=== PATIENT | female | born 1990 | race Caucasian/White ===

== ENCOUNTER 2020-07-13 08:10 | Emergency (ER) | payer MEDICAID ==
[~2020-07-13] VITALS: Ht 167.6 cm; Wt 68.7 kg
[2020-07-13] MEDS ORDERED: TETanus/Pertussis (Acell)/Diphther VAC/PF (Tdap-Adult) 0.5ml syringe IMVAC ONE (09:30)
[2020-07-13] MEDS ORDERED: LIDOcaine 1% W/epiNEPHrine 1:200,000 10ml vial IJ ONE (09:30)
--- NOTE | 2020-07-13 09:58 | NUR ---
at bedside right axcillary abcess removal
[2020-07-13] MEDS ORDERED: sulfamethoxazole/trimethoprim DS (800/160mg) tablet PO ONE (10:05)
[2020-07-13] MEDS ORDERED: SULF1TAB49 PO (10:06)
[2020-07-13 12:16] VITALS: BP 113/76
== END 2020-07-13 12:25 | disposition home or self-care (01) ==
LOC: ER 08:10
DX: L02.411 Cutaneous abscess of right axilla (principal); Z88.1 Allergy status to other antibiotic agents; Z79.899 Other long term (current) drug therapy
CPT/HCPCS: 10060; 90471; 90715; 99283

== ENCOUNTER 2024-02-07 21:37 | Emergency (ER) | payer MEDICAID ==
[~2024-02-07] VITALS: Ht 170.2 cm; Wt 61.4 kg
[2024-02-07 22:02] VITALS: BP 135/89; PULSE 109; RESP 18; TEMP 97.8; O2SAT 99
[2024-02-07] MEDS ORDERED: GRIS500T7 PO (23:05)
[2024-02-07] MEDS ORDERED: CLOT30CR19 TOP (23:05)
== END 2024-02-07 23:24 | disposition home or self-care (01) ==
LOC: ER 21:38
DX: B35.4 Tinea corporis (principal)
CPT/HCPCS: 99283

== ENCOUNTER 2024-09-17 20:55 | Emergency (ER) | payer MEDICAID ==
[~2024-09-17] VITALS: Ht 167.6 cm; Wt 65.9 kg
[~2024-09-17 20:55] MED LIST: CLOT30CR19 TOP; GRIS500T7 PO
[2024-09-17 21:31] LABS: BASOPHILS % (AUTO) 0.1 % (0-1); EOSINOPHILS % (AUTO) 0.2 % (0-6); HEMATOCRIT 46.1 % (35.0-45.0); HEMOGLOBIN 15.3 g/dl (12.0-16.0); LYMPHOCYTES # (AUTO) 0.6 X10'3 (1.1-4.8); LYMPHOCYTES % (AUTO) 4.6 % (21-51); MEAN CORPUSCULAR HEMOGLOBIN 29.9 PG (27.0-31.0); MEAN CORPUSCULAR HGB CONC 33.2 g/dL (33.0-36.5); MEAN CORPUSCULAR VOLUME 89.8 FL (78-98); MEAN PLATELET VOLUME 7.8 FL (7.4-10.4); MONOCYTES # (AUTO) 0.4 X10'3 (0-0.9); MONOCYTES % (AUTO) 3.3 % (2-12); NEUTROPHILS # (AUTO) 11.7 X10'3 (1.8-7.7); NEUTROPHILS % (AUTO) 91.8 % (42-75); PLATELET COUNT 309 X10'3 (140-440); RED BLOOD COUNT 5.13 X10'6 (4.20-5.60); RED CELL DISTRIBUTION WIDTH 12.9 % (11.5-14.5); WHITE BLOOD COUNT 12.7 X10'3 (4.5-11.0)
[2024-09-17 21:46] LABS: ALANINE AMINOTRANSFERASE 15 U/L (12-78); ALBUMIN 3.7 G/DL (3.4-5.0); ALBUMIN/GLOBULIN RATIO 0.9 (1.1-1.5); ALKALINE PHOSPHATASE 87 IU/L (46-116); ANION GAP 5 (8-16); ASPARTATE AMINO TRANSFERASE 14 U/L (10-37); BILIRUBIN,TOTAL 0.8 MG/DL (0.1-1.0); BLOOD UREA NITROGEN 17 MG/DL (7-18); CALCIUM 8.3 MG/DL (8.5-10.1); CHLORIDE 103 MMOL/L (99-107); CREATININE 0.74 MG/DL (0.40-0.90); GLUCOSE 120 MG/DL (70-104); LIPASE 32 U/L (16-77); POTASSIUM 4.3 MMOL/L (3.5-5.1); SODIUM 138 MMOL/L (135-145); TOTAL CARBON DIOXIDE 29.6 MMOL/L (24-32); TOTAL PROTEIN 7.9 G/DL (6.4-8.2); eCRCL 98 ML/MIN; eGFR 89 ML/MIN
[2024-09-17 21:47] LABS: URINE HCG NEGATIVE (NEG)
[2024-09-17 21:50] LABS: BILIRUBIN,URINE NEGATIVE (Neg); CLARITY,URINE SLIGHTLY CLOUDY (Clear); COLOR,URINE YELLOW (Yellow); GLUCOSE, URINE NEGATIVE (Neg); KETONES,URINE NEGATIVE (Neg); LEUKOCYTE ESTERASE ,URINE NEGATIVE (Neg); NITRITES, URINE NEGATIVE (Neg); OCCULT BLOOD,URINE TRACE-INTACT (Neg); PROTEIN,URINE TRACE mg/dl (Neg); UROBILINOGEN,URINE 0.2 E.U/dL (0.2-1.0)
[2024-09-17 21:51] LABS: UA COLLECTION TYPE CLN CATCH MIDSTREAM
[2024-09-17 21:53] LABS: BACTERIA,URINE 1+ /HPF (Neg); MUCUS STRANDS MODERATE /LPF (Neg); RBC,URINE 0-2 /HPF (0-2); SQUAMOUS EPITHELIAL CELL,UR MANY /LPF (FEW); WBC,URINE 0-4 /HPF (0-4)
[2024-09-17] MEDS: normal saline 1000ML IV soln IVB ONE (23:13)
[2024-09-17] MEDS: ketorolac trometh 15mg/ml vial 15 MG/ML ML IV ONE (23:14)
[2024-09-17] MEDS: LORazepam 2 mg/ml vial IV ONE (23:14)
[2024-09-17] MEDS: dicyclomine 10 MG capsule PO ONE (23:14)
[2024-09-18] MEDS ORDERED: DICY10CA88 PO (01:17)
[2024-09-18] MEDS ORDERED: ONDA-243 PO (01:17)
[2024-09-18] MEDS: normal saline 1000ML IV soln IVB ONE (01:40)
[2024-09-18 02:36] VITALS: BP 105/51; PULSE 82; RESP 16; TEMP 98; O2SAT 98
== END 2024-09-18 02:42 | disposition home or self-care (01) ==
LOC: ER 20:55
DX: R11.2 Nausea with vomiting, unspecified (principal); R10.9 Unspecified abdominal pain; E86.0 Dehydration; F17.200 Nicotine dependence, unspecified, uncomplicated; Z88.1 Allergy status to other antibiotic agents
CPT/HCPCS: 36415; 80053; 81001; 81025; 83690; 85025; 96361; 96374; 96375; 99285; J1885; J2060; J7030

== ENCOUNTER 2024-12-30 23:51 | Emergency (ER) | payer MEDICAID ==
[~2024-12-30] VITALS: Ht 167.6 cm; Wt 67.3 kg
[~2024-12-30 23:51] MED LIST changes: +ONDA-243 PO
[2024-12-31 02:59] LABS: BASOPHILS % (AUTO) 0.6 % (0-1); EOSINOPHILS # (AUTO) 0.3 X10'3 (0-0.9); EOSINOPHILS % (AUTO) 4.5 % (0-6); HEMOGLOBIN 12.8 g/dl (12.0-16.0); LYMPHOCYTES # (AUTO) 2.8 X10'3 (1.1-4.8); LYMPHOCYTES % (AUTO) 41.1 % (21-51); MEAN CORPUSCULAR HEMOGLOBIN 29.4 PG (27.0-31.0); MEAN CORPUSCULAR HGB CONC 33.7 g/dL (33.0-36.5); MEAN CORPUSCULAR VOLUME 87.2 FL (78-98); MEAN PLATELET VOLUME 8.5 FL (7.4-10.4); MONOCYTES # (AUTO) 0.5 X10'3 (0-0.9); MONOCYTES % (AUTO) 7.4 % (2-12); NEUTROPHILS # (AUTO) 3.2 X10'3 (1.8-7.7); NEUTROPHILS % (AUTO) 46.4 % (42-75); PLATELET COUNT 294 X10'3 (140-440); RED BLOOD COUNT 4.36 X10'6 (4.20-5.60); RED CELL DISTRIBUTION WIDTH 12.9 % (11.5-14.5); WHITE BLOOD COUNT 6.9 X10'3 (4.5-11.0)
[2024-12-31 03:18] LABS: ALANINE AMINOTRANSFERASE 24 U/L (12-78); ALBUMIN 3.6 G/DL (3.4-5.0); ALBUMIN/GLOBULIN RATIO 1.1 (1.1-1.5); ALKALINE PHOSPHATASE 108 IU/L (46-116); ANION GAP 6 (8-16); ASPARTATE AMINO TRANSFERASE 21 U/L (10-37); BILIRUBIN,TOTAL 0.3 MG/DL (0.1-1.0); BLOOD UREA NITROGEN 20 MG/DL (7-18); CALCIUM 8.4 MG/DL (8.5-10.1); CHLORIDE 107 MMOL/L (99-107); CREATININE 0.91 MG/DL (0.40-0.90); GLUCOSE 95 MG/DL (70-104); LIPASE 38 U/L (16-77); SODIUM 142 MMOL/L (135-145); TOTAL CARBON DIOXIDE 28.8 MMOL/L (24-32); eCRCL 80 ML/MIN; eGFR 70 ML/MIN
[2024-12-31 04:02] LABS: URINE HCG NEGATIVE (NEG)
[2024-12-31 04:16] LABS: BILIRUBIN,URINE NEGATIVE (Neg); CLARITY,URINE CLEAR (Clear); COLOR,URINE YELLOW (Yellow); GLUCOSE, URINE NEGATIVE (Neg); KETONES,URINE NEGATIVE (Neg); LEUKOCYTE ESTERASE ,URINE NEGATIVE (Neg); NITRITES, URINE NEGATIVE (Neg); OCCULT BLOOD,URINE SMALL (Neg); PROTEIN,URINE NEGATIVE (Neg); UROBILINOGEN,URINE 0.2 E.U/dL (0.2-1.0)
[2024-12-31 04:18] LABS: UA COLLECTION TYPE CLN CATCH MIDSTREAM
[2024-12-31 04:23] LABS: BACTERIA,URINE 1+ /HPF (Neg); MUCUS STRANDS FEW /LPF (Neg); SQUAMOUS EPITHELIAL CELL,UR FEW /LPF (FEW)
--- NOTE | 2024-12-31 04:34 | Physician Documentation ---
History of Present Illness ~ Chief Complaint: Flank Pain Stated Complaint: FLANK PAIN Time Seen by MD: 04:26 Primary Medical Doctor: [facility] Mode of Arrival: POV, EMS HPI Patient presents to the emergency room with right lower back pain. No prior instances. Pain has resolved by the time I was able to examined the patient. She states that she was sitting and a [place] when she had terrible pain initially went away and then returned therefore she came in to be evaluated. Patient reports no problems urinating or defecating. Pain sharp in nature. She reports regular bowel movements Medication Reconciliation Allergies: Coded Allergies: cephalexin (Unverified Allergy, Unknown, 09/17/24) Scheduled Clotrimazole (Clotrimazole), 1 APPLIC TOP Q12H Griseofulvin, Microsize (Griseofulvin), 1 TAB PO DAILY Scheduled PRN ONDANSETRON ODT 4mg tablet (Ondansetron Odt), 1 TAB PO Q6H PRN PRN for nausea/vomiting Past Medical History Past Medical History: No Pertinent History Past Surgical History: no surgical history Alcohol Use: Occasionally Drug Use: methamphetamine Lives In: Home Review of Systems ROS All review of systems negative except as per HPI Physical Exam Vital Signs: Temperature: 98.8, Source: Temporal, Heart Rate: 89, Respiratory Rate: 19, BP: 140/90, Pulse Oximetry: 100, Weight: 67.350 Oxygen Flow Rate: 0 Physical Exam General: Patient is awake, alert, oriented x4 in no acute distress Head: Normocephalic and atraumatic. Eyes: Conjunctival normal. EOMI. PERRL. ENT: Mucous membranes moist. Neck: Supple, trachea is midline. Chest: Clear to auscultation bilaterally without rales, rhonchi, or wheezes. There is no accessory muscle use or retractions. Cardiac: RRR without murmurs, gallops, or rubs. Abd: Soft, nondistended, nontender, with normoactive bowel sounds. No guarding, rebound, or rigidity. Back: No midline spinal or CVA tenderness. Progress Results/Orders Results/Orders Orders - YOMI RODRIGUEZ MD Cult Urine + [address] (12/31/24 04:23) Completed Orders - YOMI RODRIGUEZ MD Hcg, Ur Ql (12/31/24 02:00) Cbc/Diff (12/31/24 02:00) BMP (12/31/24 02:00) Lipase (12/31/24 02:00) CMP (12/31/24 02:00) Ua W/Microscopic, Cult If Ind (12/31/24 03:41) Potassium Cl Sr Tablet (K-Dur Tablet) (12/31/24 04:33) Vital Signs 12/31/24 12/31/24 12/31/24 00:00 02:27 02:29 Temp 98.8 Pulse 87 89 Resp 18 18 19 B/P (MAP) 145/92 140/90 (107) Pulse Ox 100 100 O2 Flow Rate 0 Laboratory Tests Test 12/31/24 02:33 12/31/24 03:41 White Blood Count 6.9 Red Blood Count 4.36 Hemoglobin 12.8 Hematocrit 38.0 Mean Corpuscular Volume 87.2 Mean Corpuscular Hemoglobin 29.4 Mean Corpuscular Hemoglobin Concent 33.7 Red Cell Distribution Width 12.9 Platelet Count 294 Mean Platelet Volume 8.5 Neutrophils (%) (Auto) 46.4 Lymphocytes (%) (Auto) 41.1 Monocytes (%) (Auto) 7.4 Eosinophils (%) (Auto) 4.5 Basophils (%) (Auto) 0.6 Neutrophils # (Auto) 3.2 Lymphocytes # (Auto) 2.8 Monocytes # (Auto) 0.5 Eosinophils # (Auto) 0.3 Basophils # (Auto) 0.0 CBC Comment Sodium Level 142 Potassium Level 3.0 *L Chloride Level 107 Carbon Dioxide Level 28.8 Anion Gap 6 L Blood Urea Nitrogen 20 H Creatinine 0.91 H Estimated GFR/1.73 m2 70 BUN/Creatinine Ratio 22.0 H Glucose Level 95 Calcium Level 8.4 L Total Bilirubin 0.3 Aspartate Amino Transf (AST/SGOT) 21 Alanine Aminotransferase (ALT/SGPT) 24 Alkaline Phosphatase 108 Total Protein 7.0 Albumin 3.6 Globulin 3.4 Albumin/Globulin Ratio 1.1 Lipase 38 Chemistry Comments Urine Specimen Description Cln catch midstream Urine Color Yellow Urine Clarity Clear Urine pH 6.0 Urine Specific [place] 1.025 Urine Protein Negative Urine Glucose (UA) Negative Urine Ketones Negative Urine Occult Blood Small Urine Nitrite Negative Urine Bilirubin Negative Urine Urobilinogen 0.2 Urine Leukocyte Esterase Negative Urine RBC 3-10 Urine WBC 5-10 H Urine Squamous Epithelial Cells Few Urine Bacteria 1+ Urine Mucus Few Urine Culture Indicated Indicated Volume Urine Centrifuged 10 ml Urine HCG, Qualitative Negative Urine Comment Medical Decision Making Findings Patient presents to the emergency room for evaluation of back pain which has since resolved. Reassuring labs. Noted abnormalities on urinalysis however I do not feel she is suffering from a urinary tract infection. Patient is currently asymptomatic therefore I do not feel she requires CT scan. Diff Dx Pain:Considerations: Include: -Inevitable, -Missed, -Threatened, Abruptio placentae, Angina/IA, Diverticular disease, Dysmenorrhea, Esophagitis, Gastritis/PUD Departure Disposition: HOME / SELF CARE / HOMELESS Impression: Primary Impression: Low back pain Condition: Stable Discharge Instructions: Acute Back Pain, Adult Referrals: NO PRIMARY CARE PROVIDER (PCP) Signature Scribe Signature: No scribe Attestation: The note accurately reflects work and decisions made by me.Yomi Rodriguez MD 12/31/24 04:48 YOMI RODRIGUEZ MD Dec 31, 2024 04:34
[2024-12-31] MEDS: potassium Cl 20 mEq SR tablet PO STA (05:28)
[2024-12-31 05:31] VITALS: BP 114/78; PULSE 98; RESP 16; TEMP 98.8; O2SAT 100
== END 2024-12-31 05:32 | disposition home or self-care (01) ==
LOC: ER 23:52
DX: M54.50 Low back pain, unspecified (principal); F15.90 Other stimulant use, unspecified, uncomplicated; Z88.1 Allergy status to other antibiotic agents; Z79.899 Other long term (current) drug therapy
CPT/HCPCS: 36415; 80053; 81001; 81025; 83690; 85025; 87088; 99283

== ENCOUNTER 2025-01-02 04:36 | Emergency (ER) | payer MEDICAID ==
[~2025-01-02] VITALS: Ht 170.2 cm; Wt 67.5 kg
[2025-01-02 05:45] VITALS: TEMP 97.3
--- NOTE | 2025-01-02 06:41 | Physician Documentation ---
History of Present Illness Chief Complaint: Flank Pain Stated Complaint: FLANK PAIN Time Seen by MD: 06:14 Primary Medical Doctor: [facility] Mode of Arrival: POV HPI 34-year-old female patient who has been utilization meth since she was 12 years of age and also a smoker one pack a day came back to the emergency room because of the same pain that she sought medical attention on December 30. On 30 of December she had a right lower flank pain in the morning and there was some nausea but no vomiting and the pain was sharp and needles like and about 1 hour it went away and came back on the same night 21:00 and the pain was very severe and then she came to the emergency room. According to the ER physician's note, patient's pain resolved and her labs are normal except low potassium therefore she was discharged. Her urine test was also negative for UTI. She came back because the pain is still there. No fever no chills. Patient does not endorse any chest pain, vomiting, diarrhea, and shortness of breath. She has no problems with urination or bowel movements. Medication Reconciliation Allergies: Coded Allergies: cephalexin (Unverified Allergy, Unknown, 01/02/25) Scheduled Clotrimazole (Clotrimazole), 1 APPLIC TOP Q12H Griseofulvin, Microsize (Griseofulvin), 1 TAB PO DAILY Scheduled PRN Ibuprofen* (Motrin*), 400 MG PO Q8H PRN for mild to moderate pain 1-6 ONDANSETRON ODT 4mg tablet (Ondansetron Odt), 1 TAB PO Q6H PRN PRN for nausea/vomiting Past Medical History Past Medical History: No Pertinent History Past Surgical History: no surgical history Smoking Status: Current every day smoker Alcohol Use: Occasionally Drug Use: methamphetamine Lives In: Home Review of Systems ROS As stated above in the HPI, otherwise all systems are reviewed and negative. Physical Exam Vital Signs: Temperature: 97.3, Source: Oral, Heart Rate: 88, Respiratory Rate: 14, BP: 148/92, Pulse Oximetry: 99, Weight: 67.500 Oxygen Flow Rate: 0 Physical Exam I reviewed vital signs and they are well within normal range and patient is afebrile. Const: Well bit well nourished young adult female Head: Atraumatic Eyes: Normal Conjunctiva, TERE EOMI no pallor no jaundice ENT: Normal External Ears, Nose and Mouth. Moist mucous membranes Neck: Full range of motion. No meningismus Resp: Clear to auscultation bilaterally. Normal work of breathing Cardio: Regular rate and rhythm, no murmurs. Skin well perfused, heart rate is 88 beats per minute. Abd: Soft, mild tenderness in the right side of the abdomen, non-distended. Normal bowel sounds. No rebound or guarding The patient does have right flank tenderness. Skin: No petechiae or rashes. Warm and dry Back: No midline or flank tenderness Ext: No cyanosis, or edema Neuro: Awake and alert Psych: Normal Mood and Affect Progress Results/Orders Results/Orders Orders - DARIUS BERNSTEIN MD Hcg, Ur Ql (01/02/25 06:32) Vital Signs 01/02/25 01/02/25 01/02/25 01/02/25 04:37 05:42 05:45 06:32 Temp 97.3 97.3 Pulse 91 92 88 Resp 18 14 14 14 B/P (MAP) 165/110 141/91 (108) 148/92 (110) Pulse Ox 100 100 99 O2 Flow Rate 0 0 0 Medical Decision Making Findings During the physical examination, the findings suggestive of acute life- threatening condition such as JVD, tracheal deviation, acidotic breathing, noisy stridorous breath sounds, pulses paradoxus, muffled heart sounds, unequal breath sounds, abdominal rigidity and rebound tenderness, focal neurological deficits, cool clammy skin, severe hypotension, severe tachycardia or bradycardia are absent. Abdominal examination does not reveal any features of acute abdomin. UA does not show any signs of UTI. Ultrasound of the abdomen does not show any hydro nephrosis and gallbladder is normal. I have explained to the patient about the findings of the labs results. She is much improved and comfortable. I have told her that do cut down utilization of methamphetamines as much as and as fast as possible as well as smoking. She said at this time she is homeless because of her three dogs. That is in terms of placement. She will be discharged home with NS AID and follow up instructions. DISCLAIMER Inadvertent spelling and grammatical errors,inadvertent spinner cap frame errors,syntax errors, grammatical errors, and spelling errors are likely due to EMR/dictation software use and do not reflect on the overall quality of patient care. Note that the electronic time recorded on this note does not necessarily reflect the actual time of the patient encounter. Departure Disposition: 01 HOME / SELF CARE / HOMELESS Impression: Primary Impression: Strain of lumbar region Additional Impression: Right lumbar pain Discharge Instructions: Lumbosacral Strain Additional Instructions: Thank you for coming to our Emergency Department today. Please quit smoking and meth amphetamine usage as fast and as much as you could. Low-salt diet and regular physical activities. Please ask your nurse or provider if you have questions about your care today and do not leave until all your questions have been answered. Please use any medications given as directed and follow-up with your doctor (or the doctor you were referred to) in the next 1-3 days. Your primary care doctor can help to coordinate outpatient specialty care and provide authorization for specialty referral as needed. If you do not have a primary care doctor you may follow up at a [facility]. You may also use motrin and tylenol as needed for fever and/or pain unless instructed otherwise by your provider or nurse. Indications for more urgent follow-up have been discussed, but you may return to the Emergency Department at ANY time for any worrisome or worsening symptoms. [facility] Facilities: [place] [address] Referrals: NO PRIMARY CARE PROVIDER (PCP) Prescriptions Ibuprofen* (Motrin*) 400 Mg Tablet 400 MG PO Q8H PRN for mild to moderate pain 1-6, #30 TAB With food Prov: DARIUS BERNSTEIN MD 01/02/25 Signature Scribe Signature: x Attestation: This is my dictation DARIUS BERNSTEIN MD Jan 02, 2025 06:41
[2025-01-02 06:56] LABS: URINE HCG NEGATIVE (NEG)
[2025-01-02 06:59] LABS: BILIRUBIN,URINE NEGATIVE (Neg); CLARITY,URINE CLEAR (Clear); COLOR,URINE YELLOW (Yellow); GLUCOSE, URINE NEGATIVE (Neg); KETONES,URINE NEGATIVE (Neg); LEUKOCYTE ESTERASE ,URINE NEGATIVE (Neg); NITRITES, URINE NEGATIVE (Neg); OCCULT BLOOD,URINE LARGE (Neg); PROTEIN,URINE TRACE mg/dl (Neg); UROBILINOGEN,URINE 0.2 E.U/dL (0.2-1.0)
[2025-01-02 07:07] LABS: UA COLLECTION TYPE CLN CATCH MIDSTREAM
[2025-01-02 07:24] LABS: BACTERIA,URINE 1+ /HPF (Neg); MUCUS STRANDS FEW /LPF (Neg); SQUAMOUS EPITHELIAL CELL,UR FEW /LPF (FEW); WBC,URINE 0-4 /HPF (0-4)
[2025-01-02 08:30] VITALS: BP 146/97; PULSE 70; RESP 14; O2SAT 99
--- NOTE | 2025-01-02 08:50 | RADIOLOGY REPORT ---
INDICATION: Right flank pain please check the gallbladder and kidneys. Also free fluid TECHNIQUE: Multiple real-time sonographic images were obtained of the right upper quadrant. COMPARISON: None FINDINGS: The liver demonstrates homogeneous echotexture without focal mass lesions. The liver measu res 16.2 cm. There is no intrahepatic or extrahepatic ductal dilatation. The common duct measures 0.4 cm. The gallbladder is without evidence of stone or sludge. The gallbladder wall measures 0.2 cm and is w ithin normal limits. The right kidney measures 10.2 cm. The right kidney is normal in contour, size, and shape. The echoge nicity is normal. There is no hydronephrosis. The pancreas is not well visualized due to overlying bowel gas. IMPRESSION: Unremarkable right upper quadrant sonogram.
[2025-01-02] MEDS ORDERED: IBUP-1984 PO (09:20)
== END 2025-01-02 09:27 | disposition home or self-care (01) ==
LOC: ER 04:37
DX: S39.012A Strain of muscle, fascia and tendon of lower back, initial encounter (principal); F17.210 Nicotine dependence, cigarettes, uncomplicated; Z88.1 Allergy status to other antibiotic agents; F15.90 Other stimulant use, unspecified, uncomplicated; X58.XXXA Exposure to other specified factors, initial encounter; Y93.89 Activity, other specified; Y92.89 Other specified places as the place of occurrence of the external cause; Y99.8 Other external cause status
CPT/HCPCS: 76700; 81001; 81025; 99284